=== PATIENT | male | born 1980 | race Caucasian/White ===

== ENCOUNTER 2022-03-19 10:29 | Emergency (ER) | payer OTHER, SELFPAY ==
[2022-03-19] VITALS (15 sets, daily range): BP systolic 147–155; BP diastolic 92–98; PULSE 110–132; RESP 8–37; TEMP 36.6; O2SAT 96–98
--- NOTE | 2022-03-19 10:32 | ECG_ITS ---
Measurements Intervals [place] Rate: 112 P: 53 OR: 164 QRS: 61 QRSD: 99 T: 47 QT: 309 QTc: 423 Interpretive Statements SINUS TACHYCARDIA POSSIBLE LEFT ATRIAL ENLARGEMENT [-0.1mV P WAVE IN V1/V2] POSSIBLE RIGHT VENTRICULAR CONDUCTION DELAY [RSR (QR) IN V1/V2] ABNORMAL RHYTHM ECG NO PREVIOUS ECG AVAILABLE FOR COMPARISON Electronically Signed On 03-19-2022 15:00:17 YARD MANAGER by Ajay Cruz M.D.
[2022-03-19] MEDS: SODIUM CHLORIDE 0.9% IV 1,000 ML 999 ML IV CONT (11:31)
[2022-03-19] MEDS: LORazepam INJ (*CRX) 2 MG/ML VIAL 1 MG IV PUSH (11:31)
[2022-03-19 11:46] LABS: Basophils Absolute Auto 0.1 K/mm3 (0.0-0.1); Basophils Percent Auto 0.8 % (0.2-1.2); Eosinophils Absolute Auto 0.1 K/mm3 (0-0.3); Hematocrit 53.6 % (42.0-52.0); Hemoglobin 18.6 g/dL (14.0-18.0); Immature Granulocyte Absolute 0.02 K/mm3 (0.00-0.031); Immature Granulocyte Percent A 0.2 % (0-0.5); Lymphocytes Absolute Auto 2.84 K/mm3 (0.9-3.2); Lymphocytes Percent Auto 31.5 % (18.3-44.2); Mean Corpuscular HGB Conc 34.7 g/dl (32-36); Mean Corpuscular Hemoglobin 35.2 pg (26-34); Mean Corpuscular Volume 101.5 fl (80-100); Monocytes Absolute Auto 1.1 K/mm3 (0.1-0.6); Neutrophils Absolute Auto 4.9 K/mm3 (1.3-6.7); Neutrophils Percent Auto 54.5 % (45.5-73.1); Platelet Count Result 233 k/mm3 (150-375); Red Blood Count 5.28 M/mm3 (4.6-6.20); Red Cell Distribution Width 12.5 % (11.5-14.5)
[2022-03-19 11:50] LABS: Alanine Aminotransferase 85 U/L (6-50); Albumin Level 4.3 g/dL (3.5-5.1); Alkaline Phosphatase 100 U/L (38-126); Anion Gap 13 mmol/L (8-16); Aspartate Amino Transferase 209 U/L (17-59); Bilirubin,Total 0.4 mg/dL (0.2-1.3); Blood Urea Nitrogen 5 mg/dL (9-20); Calcium 8.7 mg/dL (8.4-10.2); Carbon Dioxide 22 mmol/L (22-30); Chloride 105 mmol/L (98-107); Estimated CRCL calculation 130 ml/min; Estimated Glomerular Filt Rate > 60; Glucose 124 mg/dL (65-110); Potassium 3.6 mmol/L (3.4-5.0); Sodium 140 mmol/L (137-145)
[2022-03-19 12:08] LABS: Ethanol 331 mg/dL (<10)
[2022-03-19 12:32] LABS: Add Urine Microscopic? NO; Appearance Urine Clear (Clear); Bilirubin Urine Negative (Negative); Blood Urine Negative (Negative); Color Urine Yellow (Yellow); Glucose Urine UA Negative (Negative); Ketones Urine Negative (Negative); Leukocyte Esterase Ur Negative LEU/UL (Negative); Nitrate Urine Negative (Negative); Protein Urine Negative (Negative); Specific Grav Ur <= 1.005 (1.001-1.035); Urobilinogen Urine 0.2 mg/dL (<2.0); pH Urine 6.5 (5.0-9.0)
--- NOTE | 2022-03-19 15:12 | ED.ALCOHOL ---
HPI - Alcohol General Chief Complaint: Alcohol Stated Complaint: ETOH withdraw Time Seen by Provider: 03/19/22 10:35 Source: patient and family Mode of arrival: ambulatory Limitations: no limitations History of Present Illness HPI narrative: 41-year-old with a history of hypertension, PTSD here with complaints of alcohol withdrawal. Patient states that he had 4 shots prior to coming to the ER. He presently denies any chest pain, shortness of breath or abdominal pain. He denies any nausea or vomiting. Complains of feeling anxious. He wants to get into a rehab. MD complaint: alcohol withdrawal Last drink: just [employer] Chronic alcohol use: Yes Previous visits for alcohol intoxication: Yes Recent trauma: No Associated symptoms: denies other symptoms Treatments prior to arrival: none Related Data Allergies Allergy/AdvReac Type Severity Reaction Status Date / Time metronidazole [From Flagyl] Allergy Anaphylaxis Verified 03/19/22 10:57 Penicillins Allergy Unknown Verified 03/19/22 10:57 Review of Systems Review of Systems: All systems reviewed & are unremarkable except as noted in HPI and below Constitutional: Constitutional: Reports no additional constitutional complaints Eyes: Eyes: Reports no additional eye complaints ENT: Reports system reviewed and no additional complaints, except as documented Cardiovascular: Cardiovascular: Reports no additional cardiovascular complaints Respiratory: Respiratory: Reports no additional respiratory complaints Gastrointestinal: Gastrointestinal: Reports no additional gastrointestinal complaints Genitourinary: Genitourinary: Reports no additional male genitourinary complaints Musculoskeletal: Musculoskeletal: Reports no additional musculoskeletal complaints Neurologic: Reports system reviewed and no additional complaints, except as documented Exam Narrative: GENERAL: Well-appearing, well-nourished, and in no acute distress. HEAD: Normocephalic, atraumatic. EYES: PERRLA and EOMI. ENT: Nares clear, no rhinorrhea or epistaxis. Mucous membranes moist. NECK: Supple. CHEST: Clear to auscultation. No respiratory distress. HEART: Mild tachycardia. No murmur heard. Normal peripheral pulses. ABDOMEN: Soft, nontender, nondistended, normal active bowel sounds. EXTREMITIES: Normal range of motion. No edema. SKIN: Warm, dry, no rash. NEURO: No focal deficits. Alert and oriented x3. PSYCH: Normal mood and affect. Course Course Emergency Course: 41-year-old with a history of chronic alcoholism now states that he is in withdrawal his last drink was few hours prior to coming to the ER. I did give her IV fluids and Ativan. Patient seems to be resting. Drug and alcohol counselor was consulted and he was here to see the patient. Resources were given to the patient and the mother. Vital Signs Vital signs: Vital Signs Pulse Rate 124 H 03/19/22 10:37 Respiratory Rate 19 03/19/22 10:37 Pulse Oximetry 96 03/19/22 10:37 Temperature 36.6 C 03/19/22 10:45 Pulse Rate 112 H 03/19/22 15:00 Respiratory Rate 23 H 03/19/22 15:00 Blood Pressure 147/98 H 03/19/22 10:45 Pulse Oximetry 98 03/19/22 15:00 Oxygen Delivery Room Air 03/19/22 10:45 MDM - Alcohol MDM Narrative Medical decision making narrative: 41-year-old with a history of alcoholism presents with alcohol withdrawal patient feeling anxious otherwise his exam is unremarkable we will start IV fluids, IV Ativan. Differential Diagnosis Differential diagnosis: Likely alcohol withdrawal delirium, alcohol intoxication and alcohol withdrawal syndrome Lab Data 03/19/22 11:31 03/19/22 11:31 Labs: Lab Results 03/19/22 03/19/22 03/19/22 Range/Units 11:31 11:31 11:31 WBC 9.0 (4.5-10.0) K/mm3 RBC 5.28 (4.6-6.20) M/mm3 Hgb 18.6 H (14.0-18.0) g/dL Hct 53.6 H (42.0-52.0) % MCV 101.5 H (80-100) fl MCH 35.2 H (26-34) pg MCHC 34.7 (32-36) g/dl RDW 12.
--- NOTE | 2022-03-19 15:28 | PCCCNOTE ---
Late entry: Phone call received from ER to meet with patient regarding detox. Met with patient and mom in Room 3. Patient is sleeping but arousable. Current alcohol level 331, per patient last drink was 10am. Patient [facility] Patient is a declines [place] services and wants to pursue detox through [facility]. Called to [facility] and there are no beds till . Called the [facility], they do have beds and spoke in depth with the patient. [facility] is recommending 7 day detox but patient does not commit since he can not take the time off of work. Called to [facility], spoke with Blanca, they do not have medical detox but 30 day residential program. Information provided to patient but he is wanting a very short stay detox. Called to [facility], no beds or in-person medical screenings until Tuesday. Called to [facility] they do not do medical detox only social detox. Called to [facility] -they have 24 hour walk in assessments, address provided on patient resources. Patient's mom stepped out of the room. Will from [facility] in the patient's room and patient is snoring and will not arouse to speak with Will. Unable to find patient's mom in the waiting in waiting room. Will leaves resources at the patient's bedside. Dr. Cash updated, plan to discharge patient with withdrawal medication.
== END 2022-03-19 15:42 | disposition home or self-care (01) ==
PROVIDERS: Emergency Provider Family Medicine
DX: F10.239 Alcohol dependence with withdrawal, unspecified (principal); I10 Essential (primary) hypertension; Y90.8 Blood alcohol level of 240 mg/100 ml or more; R00.0 Tachycardia, unspecified; R94.31 Abnormal electrocardiogram [ECG] [EKG]
CPT/HCPCS: 36415; 80053; 80307; 81003; 85025; 93005; 96361; 96374; 99284; J2060; J7030